=== PATIENT | male | born 1990 | race Caucasian/White ===

== ENCOUNTER → 2016-07-01 | Outpatient (CLI) | payer OTHER ==
[~2016-07-01] MED LIST: BECL0.3A INH; PRED20TA PO
--- NOTE | 2016-07-01 17:47 | DIAGNOSTIC IMAGING REPORT ---
LEFT HAND MIN 3 VIEWS ROUTINE CLINICAL HISTORY: PAIN COMPARISON: None. DISCUSSION: The bones and joint spaces appear intact. There is no evidence of fracture, dislocation or bony disease. There is no evidence for soft tissue swelling. IMPRESSION: Negative study. Electronically signed by: Jeromy Santana M.D. 07/01/2016 5:46 PM Dictated Date/Time: 07/01/2016 5:45 PM
--- NOTE | 2016-07-01 17:48 | DIAGNOSTIC IMAGING REPORT ---
LEFT WRIST MIN 3 VIEWS ROUTINE CLINICAL HISTORY: PAIN pain COMPARISON: None. DISCUSSION: The bones and joint spaces appear intact. There is no evidence of fracture, dislocation or bony disease. There is no evidence for soft tissue swelling. IMPRESSION: Negative study. Electronically signed by: Jeromy Santana M.D. 07/01/2016 5:46 PM Dictated Date/Time: 07/01/2016 5:46 PM
== END | disposition home or self-care (01) ==
LOC: C.RAD 17:19
DX: M79.642 Pain in left hand (principal)

== ENCOUNTER → 2016-08-12 | Outpatient (CLI) | payer OTHER | END | disposition home or self-care (01) | LOC: C.LABSPEC 15:03 | DX: R30.0 Dysuria (principal) ==

== ENCOUNTER → 2016-09-01 | Outpatient (CLI) | payer OTHER ==
[2016-09-05 23:54] LABS: CHLAMYDIA TRACH RNA*** NOT DETECTED (NOT DETECTED); GC (NEIS GONORRHOEAE)RNA** NOT DETECTED (NOT DETECTED)
== END | disposition home or self-care (01) ==
LOC: C.LABSPEC 14:42
DX: R30.0 Dysuria (principal)